=== PATIENT | female | born 1990 | race African-American/Black ===

== ENCOUNTER 2022-12-16 20:00 | Emergency (ER) | payer OTHER ==
[2022-12-16 20:19] VITALS: BP 129/80; PULSE 101; RESP 18; TEMP 98.1; BMI 31.8
[2022-12-16] MEDS ORDERED: ACETAMINOPHEN 500 MG TABLET (FP) PO ONE (21:15)
[2022-12-16] MEDS ORDERED: ACETAMINOPHEN 325 MG TABLET (FP) ONE (21:20)
[2022-12-16] MEDS ORDERED: SODIUM CHLORIDE 0.9% 500 ML INFUS.BAG IV ONE (23:32)
== END 2022-12-16 23:55 | disposition home or self-care (01) ==
LOC: JER 20:00
DX: M54.2 Cervicalgia (principal); R51.9 Headache, unspecified; V49.40XA Driver injured in collision with unspecified motor vehicles in traffic accident, initial encounter; Y93.I9 Activity, other involving external motion
CPT/HCPCS: 70450-TC; 99284-25